=== PATIENT | male | born 1960 | race Native Hawaiian/Other Pacific Islander ===

== ENCOUNTER 2020-08-02 10:27 | Day surgery (SDC) | payer OTHER ==
[2020-07-28 08:58] LABS: PLATELET COUNT 180 K/uL (142-355)
[2020-07-28 09:08] LABS: POTASSIUM 3.9 mmol/L (3.6-5.2)
== END 2020-08-02 12:55 | disposition home or self-care (01) ==
LOC: OR 10:27
PROVIDERS: Internal Medicine Gastroenterology
PROC: 0DBH8ZZ Excision of Cecum, Via Natural or Artificial Opening Endoscopic (ICD-10-PCS; principal; 2020-08-02)
PROC: 0DBL8ZZ Excision of Transverse Colon, Via Natural or Artificial Opening Endoscopic (ICD-10-PCS; 2020-08-02)
PROC: 0DBM8ZZ Excision of Descending Colon, Via Natural or Artificial Opening Endoscopic (ICD-10-PCS; 2020-08-02)
PROC: 3E0H8GC Introduction of Other Therapeutic Substance into Lower GI, Via Natural or Artificial Opening Endoscopic (ICD-10-PCS; 2020-08-02)
DX: C18.0 Malignant neoplasm of cecum (principal); D12.4 Benign neoplasm of descending colon; D12.3 Benign neoplasm of transverse colon; K63.5 Polyp of colon; K57.30 Diverticulosis of large intestine without perforation or abscess without bleeding; K64.8 Other hemorrhoids; Z12.11 Encounter for screening for malignant neoplasm of colon
CPT/HCPCS: 80053; 85027; J2704

== ENCOUNTER 2021-02-02 08:35 | Outpatient (CLI) | payer OTHER | END 2021-02-02 19:10 | disposition home or self-care (01) | LOC: CT 08:35 | PROVIDERS: ATTEND Nurse Practitioner Family | DX: C18.0 Malignant neoplasm of cecum (principal) | CPT/HCPCS: 80053; 85027; 87635; Q9963; U0003 ==

== ENCOUNTER 2021-02-07 10:32 | Day surgery (SDC) | payer OTHER ==
[2021-02-01 13:14] LABS: POTASSIUM 3.5 mmol/L (3.6-5.2)
[2021-02-01 13:19] LABS: PLATELET COUNT 175 K/uL (142-355)
== END 2021-02-07 14:40 | disposition home or self-care (01) ==
LOC: OR 10:32
PROVIDERS: ATTEND Internal Medicine Gastroenterology
PROC: 0DBL8ZZ Excision of Transverse Colon, Via Natural or Artificial Opening Endoscopic (ICD-10-PCS; principal; 2021-02-07)
DX: D12.3 Benign neoplasm of transverse colon (principal); K64.8 Other hemorrhoids; Z86.010 Personal history of colon polyps; Z90.49 Acquired absence of other specified parts of digestive tract; Z20.828 Contact with and (suspected) exposure to other viral communicable diseases
CPT/HCPCS: 80053; 85027; 87635; J2704; U0003

== ENCOUNTER 2021-05-04 14:50 | Outpatient (CLI) | payer OTHER ==
[2021-05-18 12:13] LABS: PLATELET COUNT 179 K/uL (142-355)
[2021-05-18 12:50] LABS: POTASSIUM 3.9 mmol/L (3.6-5.2)
== END 2021-05-04 16:30 | disposition home or self-care (01) ==
LOC: LAB 14:50
PROVIDERS: ATTEND Nurse Practitioner
DX: Z20.2 Contact with and (suspected) exposure to infections with a predominantly sexual mode of transmission (principal); Z13.220 Encounter for screening for lipoid disorders; Z13.29 Encounter for screening for other suspected endocrine disorder; Z13.21 Encounter for screening for nutritional disorder; Z85.038 Personal history of other malignant neoplasm of large intestine; Z72.0 Tobacco use; R53.83 Other fatigue; R53.81 Other malaise; N52.9 Male erectile dysfunction, unspecified
CPT/HCPCS: 80053; 80061; 82607; 82746; 83036; 84443; 85027; 86695; 86696; 87535; G0432

== ENCOUNTER 2021-06-19 17:15 | Outpatient (CLI) | payer OTHER | END 2021-06-19 19:25 | disposition home or self-care (01) | LOC: LAB 17:15 | PROVIDERS: ATTEND Nurse Practitioner Family | DX: E66.9 Obesity, unspecified (principal); Z72.0 Tobacco use; R53.83 Other fatigue; N52.9 Male erectile dysfunction, unspecified; E53.8 Deficiency of other specified B group vitamins | CPT/HCPCS: 82607; 82670; 82746; 84402; 84403 ==

== ENCOUNTER 2021-07-09 09:30 | Outpatient (CLI) | payer OTHER | END 2021-07-09 21:44 | disposition home or self-care (01) | LOC: CT 09:30 | PROVIDERS: ATTEND Internal Medicine Medical Oncology | DX: C18.0 Malignant neoplasm of cecum (principal); R59.1 Generalized enlarged lymph nodes | CPT/HCPCS: 36415; 82565; 84520; Q9963 ==

== ENCOUNTER 2021-07-11 09:31 | Outpatient (CLI) | payer OTHER | END 2021-07-11 19:07 | disposition home or self-care (01) | LOC: CT 09:31 | PROVIDERS: ATTEND Internal Medicine Medical Oncology | DX: C18.0 Malignant neoplasm of cecum (principal); R59.1 Generalized enlarged lymph nodes | CPT/HCPCS: Q9963 ==

== ENCOUNTER 2021-08-03 14:57 | Outpatient (CLI) | payer OTHER | END 2021-08-03 19:21 | disposition home or self-care (01) | LOC: LAB 14:57 | PROVIDERS: ATTEND Nurse Practitioner Family | DX: E66.9 Obesity, unspecified (principal); R53.83 Other fatigue; N52.9 Male erectile dysfunction, unspecified; R73.03 Prediabetes; E53.8 Deficiency of other specified B group vitamins | CPT/HCPCS: 80061; 82607; 82670; 83036; 84403 ==

== ENCOUNTER 2021-11-21 09:09 | Outpatient (CLI) | payer OTHER | END 2021-11-21 19:57 | disposition home or self-care (01) | LOC: RESP 09:09 | PROVIDERS: ATTEND Nurse Practitioner Family | DX: I10 Essential (primary) hypertension (principal); Z82.49 Family history of ischemic heart disease and other diseases of the circulatory system | CPT/HCPCS: 93005 ==

== ENCOUNTER 2021-11-22 08:16 | Outpatient (CLI) | payer OTHER | END 2021-11-22 19:11 | disposition home or self-care (01) | LOC: RESP 08:16 | PROVIDERS: ATTEND Nurse Practitioner Family | DX: R07.89 Other chest pain (principal); I10 Essential (primary) hypertension ==

== ENCOUNTER 2022-01-28 12:42 | Outpatient (CLI) | payer OTHER | END 2022-01-28 20:11 | disposition home or self-care (01) | LOC: RAD 12:42 | PROVIDERS: ATTEND Thoracic Surgery (Cardiothoracic Vascular Surgery) | DX: J90 Pleural effusion, not elsewhere classified (principal) ==

== ENCOUNTER 2022-06-10 18:18 | Outpatient (CLI) | payer OTHER | END 2022-06-10 19:14 | disposition home or self-care (01) | LOC: RAD 18:18 | PROVIDERS: ATTEND Nurse Practitioner Family | DX: R06.02 Shortness of breath (principal) ==

== ENCOUNTER 2022-07-29 08:24 | Outpatient (CLI) | payer OTHER | END 2022-07-29 19:20 | disposition home or self-care (01) | LOC: CT 08:24 | PROVIDERS: ATTEND Nurse Practitioner Family | DX: C18.0 Malignant neoplasm of cecum (principal); R59.1 Generalized enlarged lymph nodes | CPT/HCPCS: Q9963 ==

== ENCOUNTER 2022-07-30 08:17 | Outpatient (CLI) | payer OTHER | END 2022-07-30 19:26 | disposition home or self-care (01) | LOC: CT 08:17 | PROVIDERS: ATTEND Nurse Practitioner Family | DX: C18.0 Malignant neoplasm of cecum (principal); R59.1 Generalized enlarged lymph nodes | CPT/HCPCS: 36415; 82565; 84520; Q9963 ==

== ENCOUNTER 2023-04-11 06:56 | Outpatient (CLI) | payer OTHER | END 2023-04-11 18:25 | disposition home or self-care (01) | LOC: CT 06:56 | PROVIDERS: ATTEND Nurse Practitioner Family | DX: C18.0 Malignant neoplasm of cecum (principal); K11.8 Other diseases of salivary glands; R59.1 Generalized enlarged lymph nodes | CPT/HCPCS: 36415; 82565; 84520; Q9963 ==